=== PATIENT | female | born 1990 | race African-American/Black ===

== ENCOUNTER 2022-10-22 14:41 | Emergency (ER) | payer MEDICAID, SELFPAY ==
[2022-10-22 16:10] VITALS: BP 140/73; PULSE 82; RESP 17; TEMP 36.7; O2SAT 100; BMI 24.2
[2022-10-22 17:45] LABS: Appearance Urine Clear; Color Urine Yellow; Glucose Urine UA Negative (Negative); Leukocyte Esterase Urine Trace (Negative); Nitrite Urine Negative (Negative); UMIC TRIGGER UACC YES; Urine Blood Negative (Negative); Urine Ketones Negative (Negative); Urine Protein Negative (Neg-Trace)
[2022-10-22 17:48] LABS: Bacteria Urine None Seen (None Seen); Hyaline Casts Urine 0-2 /LPF (0-2); RBC Urine 0-2 /HPF (0-2); WBC Urine 0-5 /HPF (0-5)
--- NOTE | 2022-10-22 18:34 | ED_ITS ---
HPI - General Adult General Chief complaint: General Medical Stated complaint: Rash Time Seen by Provider: 10/22/22 15:29 Source: patient, family, RN notes reviewed and old records reviewed Mode of arrival: ambulatory History of Present Illness HPI narrative: 32-year-old female with no significant past medical history presenting to ED with family complaining of pruritic rash diffusely > suprapubic/genital region x 2 months. Family presenting with similar symptoms. Admits recently immigrated from [facility]. did travel far lengths, through natural exposures. Denies known tick or insect bites, new medications, fever/chills Related Data Previous Rx's Medication Instructions Recorded cetirizine 10 mg tablet (Zyrtec) 10 mg PO DAILY PRN allergy 10/22/22 symptoms #14 tabs diphenhydramine HCl 25 mg capsule 25 mg PO TID PRN itching #14 caps 10/22/22 (Benadryl) penicillin V potassium 500 mg 500 mg PO BID 10 days #20 tabs 10/22/22 tablet Allergies Allergy/AdvReac Type Severity Reaction Status Date / Time No Known Allergies Allergy Verified 10/22/22 16:40 Review of Systems Review of Systems: Constitutional: No Fever, No Chills ENT/Mouth: No Ear Pain, No Nasal Congestion, No Sinus Pain, No Hoarseness, No sore throat, No Rhinorrhea, No Swallowing Difficulty Cardiovascular: No Chest Pain, No SOB Respiratory: No Cough, No Sputum, No Wheezing Gastrointestinal: No Nausea, No Vomiting, No Diarrhea, No Constipation, No Abdominal pain Genitourinary: No Dysuria, No Hematuria, No Urgency, No Flank Pain Musculoskeletal: No joint pain, No Myalgias, No Joint Swelling Skin: No Skin Lesions, + rash Neuro: No Weakness, No Numbness, No Paresthesias Yes all other systems are reviewed and are negative Constitutional: Constitutional: Reports as per [facility] Past Medical History Attestation statement: The following information was validated with the patient. Source: old records reviewed Social History Social History Alcohol intake: never Smoked in Last 30 Days: No Use of substances other than those prescribed or required for medical reasons: No Advance Directives: No Advance Directives Information Provided: No Physical Exam ED Vital Signs: Vital Signs - 24 hr 10/22/22 16:10 10/22/22 19:13 Temperature 98.1 F Pulse Rate 82 92 Respiratory Rate 17 18 Blood Pressure 140/73 H 139/79 Pulse Oximetry 100 100 Oxygen Delivery Method Room Air Room Air BMI result Body Mass Index 24.2 Const General: cooperative, healthy appearing and no acute distress Orientation/consciousness: patient oriented x3 Limitations: no limitations HENMT Head: Yes normal to inspection and Yes atraumatic Ears: hearing grossly normal bilaterally General nose exam: Normal external nose present Face and sinus: Yes normal facial exam Mouth: Normal oral and palatal mucosa present Eyes General: appearance normal, both eyes and all related structures EOM: EOMs intact bilaterally Neck Neck: Yes normal visual inspection and Yes no meningeal signs Resp Effort & Inspection: normal respiratory effort and no respiratory distress Cardio Rate: regular rate GI Inspection: Yes normal to inspection Palpation (GI): Soft to palpation, nontender, no guarding and not rigid Skin Other: No appreciable rash. No palm/sole or mucous membrane involvement. No sloughing Rashes: no rashes Wounds: no wounds Neuro General: patient oriented x3, tone normal and no meningeal signs Gait exam (Neuro): Normal gait present Extrem General: Yes normal to inspection Course Course Course Narrative: -UA not infected Results discussed with patient including worrisome signs and symptoms and strict return precautions, and when to return to the emergency department. They verbalized understanding and feel safe for discharge at this time. Medical Decision Making Medical Decision Making [facility] Narrative: 32-year-old female with no significant past medical history presenting to ED with family complaining of pruritic rash diffusely > suprapubic/genital region x 2 months. On exam vital signs stable, NAD, nontoxic appearing come physical exam as above. No appreciable rash to patient. No mucous membrane/palm or sole involvement. Concern for contact dermatitis vs ? Poison zechariah although no rash. Low suspicion for scabies, SJS/TENS Family presenting with similar symptoms/all have rash and recently immigrated. Case was discussed with Dr. Fernandez who also evaluated patient has. Case discussed with infectious Disease Dr. Nassar & based on collective symptoms possibly eczematous dermatitis or scarlet fever. Recommended close PCP follow- up and empiric treatment for scarlet fever with oral penicillin for family Please refer to course for remaining clinical decision making, interpretation of labs/imaging results, and discussions with consultants and/or family members. Differential Diagnosis Differential Diagnoses: The differential diagnosis associated with the presentation includes As above Lab Data MDM Lab Attestation statement: I reviewed the patient's lab results. Labs: Lab Results 10/22/22 Range/Units 17:35 Urine Color Yellow Urine Appearance Clear Urine pH 8.0 (5.0-9.0) Ur Specific [place] 1.010 (1.005-1.025) Urine Protein Negative (Neg-Trace) mg/dL Urine Glucose (UA) Negative (Negative) mg/dL Urine Ketones Negative (Negative) mg/dL Urine Blood Negative (Negative) Urine Nitrite Negative (Negative) Ur Leukocyte Esterase Trace H (Negative) Urine RBC 0-2 (0-2) /HPF Urine WBC 0-5 (0-5) /HPF Ur Squamous Epith Cells 3-5 (0-2) /HPF Urine Bacteria None Seen (None Seen) Hyaline Casts 0-2 (0-2) /LPF External Record Review External record reviewed: Inpatient record, Office record, Outpatient record, Prior outpatient labs, Prior outpatient radiology, Primary care record and Outside ED record Tests considered The following testing was considered but not selected: As above Discharge Plan Discharge Clinical Impression: Rash Patient Disposition: Home, Self-Care Instructions: Acute Rash (ED) Additional Instructions: Benadryl and Zyrtec will help with itching, take Benadryl at night as this will make you drowsy You need to establish care with a primary care doctor for further testing/follow-up. If symptoms persist or worsen return to the ED Benadryl y Zyrtec ayudar?n con la picaz?n, tome Benadryl por la noche ya que esto lo adormecer?. Debe establecer atenci?n con un m?dico de atenci?n primaria para realizar m?s pruebas/seguimiento. Si los s?ntomas persisten o empeoran, regrese al servicio de urgencias. Prescriptions: New diphenhydramine HCl [Benadryl] 25 mg capsule 25 mg PO TID PRN (Reason: itching) Qty: 14 0RF cetirizine [Zyrtec] 10 mg tablet 10 mg PO DAILY PRN (Reason: allergy symptoms) Qty: 14 0RF penicillin V potassium 500 mg tablet 500 mg PO BID 10 Days Qty: 20 0RF Referrals: [facility] [Provider Group] [facility] [Provider Group] Interventions: ED Discharge Assessment Last Done: 10/22/22 19:14 Discharge Date/Time: 10/22/22 19:16 Print Language: Yakut
[2022-10-22 19:13] VITALS: BP 139/79; PULSE 92; RESP 18; O2SAT 100
[2022-10-23 06:04] LABS: CT PCR DETECTED (Not Detect.); NG PCR NOT DETECTED (Not Detect.)
== END 2022-10-22 19:16 | disposition home or self-care (01) ==
PROVIDERS: Physician Assistant; Emergency Provider Emergency Medicine
DX: R21 Rash and other nonspecific skin eruption (principal)
CPT/HCPCS: 0353U; 81001; 99283; 99284